=== PATIENT | female | born 1965 | race Caucasian/White ===

== ENCOUNTER 2017-04-29 04:25 | Emergency (ER) | payer OTHER ==
--- NOTE | 2017-04-29 04:31 | EDM.PDOC ---
ED HPI GENERAL MEDICAL PROBLEM - General Chief Complaint: Respiratory Problem Stated Complaint: POSSIBLE HEART ATTACK Time Seen by Provider: 04/29/17 04:30 - History of Present Illness INITIAL COMMENTS - FREE TEXT/NARRATIVE: 51-year-old female presents to the emergency room concerned she may be having a heart attack. Patient presents to the emergency room with a 3 hour history of feeling very anxious tingling in her hands minimal chest discomfort, mild abdominal discomfort. She is very shaky and concerned. Patient took 2 baby aspirin earlier this evening. This evening the patient went to bed and became very anxious to discomfort she was having was more epigastric it did not radiate into her chest did not radiate into her neck or into her arms she did have some hand tingling this was felt by the patient bilaterally. Family history is positive for a brother who had an UT in his 50s he is doing well now 3 other siblings have not had any heart problems she has a grandparent with history of an UT in over age 70 Several weeks ago the patient had a stress Cardiolite done because of becoming shortness of breath after climbing stairs and this did not show any obvious ischemia she had an accelerated hypertensive response and suboptimal exercise tolerance Cardiolite images did not show any obvious reversible ischemia there some questionable areas and an area of potential old infarct. - Related Data Allergies Allergy/AdvReac Type Severity Reaction Status Date / Time No Known Allergies Allergy Verified 10/31/16 16:46 Home Meds: Home Meds Hydrochlorothiazide/Losartan [Hyzaar 50-12.5 MG] 1 tab PO DAILY 10/31/16 [ History] Cetirizine HCl [Zyrtec] 10 mg PO DAILY 04/29/17 [History] LORazepam [Ativan] 0.5 mg PO BID PRN #10 tablet 04/29/17 [Rx] Past Medical History - Past Health History Medical/Surgical History: Denies Medical/Surgical History HEENT History: Reports: Other (See Below) Other HEENT History: hearing loss, R otalgia Cardiovascular History: Reports: Hypertension Gastrointestinal History: Reports: Hemorrhoids Genitourinary History: Reports: Other (See Below) Other Genitourinary History: microscopic hematuria Neurological History: Reports: Migraines, Vertigo Endocrine/Metabolic History: Reports: Obesity/BMI 30+ Dermatologic History: Reports: Other (See Below) Other Dermatologic History: contact dermatitis - Past Surgical History Endocrine Surgical History: Reports: Thyroid Biopsy Social & Family History - Tobacco Use Smoking Status *Q: Never Smoker - Recreational Drug Use Recreational Drug Use: No Drug Use in Last 12 Months: No ED ROS GENERAL - Review of Systems Review Of Systems: See Below Constitutional: Reports: No Symptoms HEENT: Reports: No Symptoms Respiratory: Reports: Other (She has some discomfort with deep breathing). Denies: Shortness of Breath Cardiovascular: Reports: Chest Pain (Minimal chest discomfort) GI/Abdominal: Reports: Abdominal Pain (Epigastric), Nausea. Denies: Black Stool , Bloody Stool, Constipation, Diarrhea, Vomiting : Reports: No Symptoms Neurological: Reports: No Symptoms ED EXAM, GENERAL - Physical Exam Exam: See Below Exam Limited By: Other (Upon arrival to the emergency department the patient was very anxious this did improve with time and a little treatment) General Appearance: Anxious Head: Atraumatic, Normocephalic Neck: Normal Inspection, Supple, Non-Tender, Full Range of Motion. No: Lymphadenopathy (L), Lymphadenopathy (R) Respiratory/Chest: No Respiratory Distress, Lungs Clear, Normal Breath Sounds Cardiovascular: Regular Rate, Rhythm, No Edema, No Murmur GI/Abdominal: Normal Bowel Sounds, Soft, Other (Patient has some epigastric discomfort no other abdominal tenderness appreciated no rigidity no rebound or guarding) Back Exam: Normal Inspection. No: CVA Tenderness (L), CVA Tenderness (R) Neurological: Alert, Oriented Psychiatric: Anxious Course - Vital Signs Last Recorded V/S: Last Vital Signs Temp 36.2 C 04/29/17 04:29 Pulse 75 04/29/17 07:30 Resp 16 04/29/17 07:30 BP 168/78 H 04/29/17 04:29 Pulse Ox 99 04/29/17 07:30 - Orders/Labs/Meds Orders: Active Orders 24 hr Category Date Time Status EKG Documentation Completion [RC] STAT Care 04/29/17 04:43 Active Chest 1V Frontal [CR] Stat Exams 04/29/17 04:43 Taken Labs: Laboratory Tests 04/29/17 04/29/17 04/29/17 Range/Units 04:30 04:30 04:30 WBC 10.36 H (3.98-10.04) K/mm3 RBC 5.14 (3.98-5.22) M/mm3 Hgb 14.1 (11.2-15.7) gm/L Hct 43.3 (34.1-44.9) % MCV 84.2 (79.4-94.8) fl MCH 27.4 (25.6-32.2) pg MCHC 32.6 (32.2-35.5) g/dl RDW Std Deviation 41.6 (36.4-46.3) fL Plt Count 239 (182-369) K/mm3 MPV 10.4 (9.4-12.3) fl Neutrophils % (Manual) 71 H (40-60) % Band Neutrophils % 0 (0-10) % Lymphocytes % (Manual) 22 (20-40) % Atypical Lymphs % 0 % Monocytes % (Manual) 6 (2-10) % Eosinophils % (Manual) 1 (0.7-5.8) % Basophils % (Manual) 0 L (0.1-1.2) Platelet Estimate Adequate Plt Morphology Comment Normal RBC Morph Comment Normal PT 9.7 (8.0-13.0) SECONDS INR 0.90 APTT 27 (22-36) SECONDS Sodium 143 (136-145) mEq/L Potassium 3.3 L (3.5-5.1) mEq/L Chloride 107 (98-107) mEq/L Carbon Dioxide 23 (21-32) mEq/L Anion Gap 16.3 H (5-15) BUN 13 (7-18) mg/dL Creatinine 0.9 (0.55-1.02) mg/dL Est Cr Clr Drug Dosing 63.86 mL/min Estimated GFR (MDRD) > 60 (>60) mL/min BUN/Creatinine Ratio 14.4 (14-18) Glucose 124 H (74-106) mg/dL Calcium 9.2 (8.5-10.1) mg/dL Total Bilirubin 0.3 (0.2-1.0) mg/dL AST 13 L (15-37) U/L ALT 22 (14-59) U/L Alkaline Phosphatase 80 (46-116) U/L Troponin I < 0.017 (0.00-0.056) ng/mL Total Protein 8.1 (6.4-8.2) g/dl Albumin 4.0 (3.4-5.0) g/dl Globulin 4.1 gm/dL Albumin/Globulin Ratio 1.0 (1-2) 04/29/17 Range/Units 06:50 WBC (3.98-10.04) K/mm3 RBC (3.98-5.22) M/mm3 Hgb (11.2-15.7) gm/L Hct (34.1-44.9) % MCV (79.4-94.8) fl MCH (25.6-32.2) pg MCHC (32.2-35.5) g/dl RDW Std Deviation (36.4-46.3) fL Plt Count (182-369) K/mm3 MPV (9.4-12.3) fl Neutrophils % (Manual) (40-60) % Band Neutrophils % (0-10) % Lymphocytes % (Manual) (20-40) % Atypical Lymphs % % Monocytes % (Manual) (2-10) % Eosinophils % (Manual) (0.7-5.8) % Basophils % (Manual) (0.1-1.2) Platelet Estimate Plt Morphology Comment RBC Morph Comment PT (8.0-13.0) SECONDS INR APTT (22-36) SECONDS Sodium (136-145) mEq/L Potassium (3.5-5.1) mEq/L Chloride (98-107) mEq/L Carbon Dioxide (21-32) mEq/L Anion Gap (5-15) BUN (7-18) mg/dL Creatinine (0.55-1.02) mg/dL Est Cr Clr Drug Dosing mL/min Estimated GFR (MDRD) (>60) mL/min BUN/Creatinine Ratio (14-18) Glucose (74-106) mg/dL Calcium (8.5-10.1) mg/dL Total Bilirubin (0.2-1.0) mg/dL AST (15-37) U/L ALT (14-59) U/L Alkaline Phosphatase (46-116) U/L Troponin I < 0.017 (0.00-0.056) ng/mL Total Protein (6.4-8.2) g/dl Albumin (3.4-5.0) g/dl Globulin gm/dL Albumin/Globulin Ratio (1-2) Meds: Medications Discontinued Medications Generic Name Dose Route Start Last Admin Trade Name Freq PRN Reason Stop Dose Admin Lorazepam 0.5 mg 04/29/17 04:44 04/29/17 04:53 Ativan IVPUSH 04/29/17 04:45 0.5 mg ONETIME ONE Administration Ondansetron HCl 4 mg 04/29/17 04:44 04/29/17 04:53 Zofran IVPUSH 04/29/17 04:45 4 mg ONETIME ONE Administration - Re-Assessments/Exams Free Text/Narrative Re-Assessment/Exam: 04/29/17 05:33 Patient improved shortly after receiving the Ativan and Zofran and after about 15 minutes was symptom-free the tingling in her hands was gone her epigastric discomfort had resolved and she was much calmer. Awaiting labs at this point did review her EKG which shows no acute ischemia she has a right bundle branch block which is not new did review her stress test from several weeks ago along with the Cardiolite report the patient has follow-up with cardiology coming however her stress test did not show any obvious abnormalities she's has suboptimal exercise tolerance. Cardiolite images are a little suspicious for a small UT in the past no obvious reversible defects but questionable area that is very small on the septum. 04/29/17 06:04 Reviewed the results of the test with the patient and her her heart score is 31 point for age 2 points for 3 risk factors hypertension obesity and family history of coronary artery disease discussed the 1.7% chance of major acute coronary event within 6 weeks and offered a repeat troponin 2 hours after the first she would like to pursue this at this time the patient is absolutely symptom-free. Departure - Departure Time of Disposition: 08:12 Disposition: Home, Self-Care 01 Clinical Impression: Anxiety, Epigastric discomfort - Discharge Information Prescriptions: LORazepam [Ativan] 0.5 mg PO BID PRN #10 tablet PRN Reason: Anxiety Referrals: PCP,Unknown [Primary Care Provider] - Lianne Brady NP [ED Midlevel Provider] - Forms: ED Department Discharge Additional Instructions: Return to the emergency room with any questions or problems. Follow up with your regular health care provider this next week for recheck. You have a prescription for Ativan, this is for anxiety, you can use 1 twice daily as needed for anxiety, however only use as needed. Follow-up with the health insurance assessor as scheduled. Take a baby aspirin daily. - My Orders Last 24 Hours: My Active Orders 04/29/17 04:43 EKG Documentation Completion [RC] STAT Chest 1V Frontal [CR] Stat - Assessment/Plan Last 24 Hours: My Active Orders 04/29/17 04:43 EKG Documentation Completion [RC] STAT Chest 1V Frontal [CR] Stat
[2017-04-29 04:32] VITALS: BP 168/78
[2017-04-29] MEDS ORDERED: LORazepam 2 MG/ML MDV IVPUSH ONE (04:44)
[2017-04-29] MEDS ORDERED: Ondansetron 4 MG/2 ML SDV IVPUSH ONE (04:44)
--- NOTE | 2017-04-30 14:38 | CR ---
Chest: Portable view of the chest was obtained. Comparison: No previous chest x-ray. Heart size and mediastinum are within normal limits for portable technique. Lungs are clear with no acute infiltrates. Bony structures are grossly intact. Impression: 1. Nothing acute is identified on portable chest x-ray. Diagnostic code #1
== END 2017-04-29 07:30 | disposition home or self-care (01) ==
LOC: JD.ED 04:25
DX: F41.9 Anxiety disorder, unspecified (principal); R10.13 Epigastric pain; I10 Essential (primary) hypertension; E66.9 Obesity, unspecified; Z68.31 Body mass index [BMI] 31.0-31.9, adult; Z79.899 Other long term (current) drug therapy
CPT/HCPCS: 36415; 71010; 80053; 84484; 85025; 85610; 85730; 93005; 96374; 96375; 99285; J2060; J2405; 99284

== ENCOUNTER 2021-05-11 12:27 | Emergency (ER) | payer BC ==
[2021-05-11 12:39] VITALS: BP 164/87; PULSE 74
[2021-05-11] MEDS ORDERED: Ibuprofen 800 MG Tab PO ONE (13:20)
--- NOTE | 2021-05-11 13:31 | EDM.PDOC ---
ED HPI GENERAL MEDICAL PROBLEM - General Chief Complaint: Lower Extremity Injury/Pain Stated Complaint: FALL/ RT FOOT PAIN Time Seen by Provider: 05/11/21 12:45 Source of Information: Reports: Patient History Limitations: Reports: No Limitations - History of Present Illness INITIAL COMMENTS - FREE TEXT/NARRATIVE: 55 yo F with fall today. Missed a step and twisted her R ankle. She has pain diffusely about the ankle now. She is able to bear weight but has significant pain with walking. Denies additional injury. No knee pain. No foot pain. No numbness/weakness. Hasn't taken anything for pain yet. Right Ankle Pain Score (Numeric/FACES): 10 - Related Data Allergies Allergy/AdvReac Type Severity Reaction Status Date / Time No Known Allergies Allergy Verified 05/11/21 12:39 Home Meds: Home Meds Hydrochlorothiazide/Losartan [Hyzaar 50-12.5 MG] 1 tab PO DAILY 10/31/16 [History] Cetirizine HCl [Zyrtec] 10 mg PO DAILY 04/29/17 [History] LORazepam [Ativan] 0.5 mg PO BID PRN #10 tablet 04/29/17 [Rx] Ibuprofen 800 mg PO TID PRN #24 tablet 05/11/21 [Rx] Past Medical History - Past Health History Medical/Surgical History: Denies Medical/Surgical History HEENT History: Reports: Other (See Below) Other HEENT History: hearing loss, R otalgia Cardiovascular History: Reports: Hypertension Gastrointestinal History: Reports: Hemorrhoids Genitourinary History: Reports: Other (See Below) Other Genitourinary History: microscopic hematuria Neurological History: Reports: Migraines, Vertigo Endocrine/Metabolic History: Reports: Obesity/BMI 30+ Dermatologic History: Reports: Other (See Below) Other Dermatologic History: contact dermatitis - Past Surgical History HEENT Surgical History: Reports: Tonsillectomy Endocrine Surgical History: Reports: Thyroid Biopsy Other Endocrine Surgeries/Procedures: thyroid enlargement Social & Family History - Tobacco Use Tobacco Use Status *Q: Former Tobacco User Used Tobacco, but Quit: Yes Month/Year Tobacco Last Used: 1986 Review of Systems - Review of Systems Review Of Systems: See Below Constitutional: Reports: No Symptoms Respiratory: Reports: No Symptoms Cardiovascular: Reports: No Symptoms GI/Abdominal: Reports: No Symptoms Musculoskeletal: Reports: Leg Pain Skin: Reports: No Symptoms Neurological: Reports: No Symptoms ED EXAM, GENERAL - Physical Exam Exam: See Below Exam Limited By: No Limitations General Appearance: Alert, WD/WN, No Apparent Distress Eye Exam: Bilateral Eye: Normal Inspection Ears: Normal External Exam Nose: Normal Inspection Throat/Mouth: Normal Inspection, Normal Oropharynx, Normal Voice Head: Atraumatic, Normocephalic Neck: Normal Inspection, Supple, Non-Tender Respiratory/Chest: No Respiratory Distress Cardiovascular: Normal Peripheral Pulses GI/Abdominal: No Distention Extremities: Other (RLE: no knee or proximal tib/fib TTP. ankle diffusely swollen, +TTP primarily over lateral malleolus, +soft tissue swelling, no deformity. 2+ DP pulse, distal motor/sensation intact) Neurological: Alert, Oriented, Normal Cognition, No Motor/Sensory Deficits Course - Vital Signs Last Recorded V/S: Last Vital Signs Temp 36.6 C 05/11/21 12:37 Pulse 74 05/11/21 12:37 Resp 18 05/11/21 12:37 BP 164/87 H 05/11/21 12:37 Pulse Ox 97 05/11/21 12:37 - Orders/Labs/Meds Orders: Active Orders 24 hr Category Date Time Status DME for Discharge [COMM] Stat Oth 05/11/21 13:30 Ordered Meds: Medications Discontinued Medications Generic Name Dose Route Start Last Admin Trade Name Mari PRN Reason Stop Dose Admin Ibuprofen 800 mg 05/11/21 13:20 05/11/21 13:33 Ibuprofen 800 Mg Tab PO 05/11/21 13:21 800 mg ONETIME ONE Administration - Re-Assessments/Exams Free Text/Narrative Re-Assessment/Exam: 05/11/21 14:30 XR R tib/fib + ankle shows R lateral malleouls fracture and also posterior malleolus fracture. Placed walking boot, patient has crutches, advised non- weight bearing until ortho f/u, provided Dr. Mercedes's clinic number to schedule. Discussed home care and ED return precautions. Departure - Departure Time of Disposition: 14:31 Disposition: Home, Self-Care 01 Clinical Impression: Fracture of distal end of fibula Qualifiers: Encounter type: initial encounter Fracture type: closed Fracture morphology: unspecified fracture morphology Laterality: right Qualified Code(s): S82.831A - Other fracture of upper and lower end of right fibula, initial encounter for closed fracture Fracture of posterior malleolus of right tibia Qualifiers: Encounter type: initial encounter Fracture type: closed Qualified Code(s): S82.391A - Other fracture of lower end of right tibia, initial encounter for closed fracture - Discharge Information Prescriptions: Ibuprofen 800 mg PO TID PRN #24 tablet PRN Reason: Pain Instructions: Tibial and Fibular Fractures Referrals: Lianne Brady, EXTRACTING MACHINE OPERATOR [Primary Care Provider] - Forms: ED Department Discharge Additional Instructions: 1. Wear walking boot and use crutches until you can walk without pain/limping 2. Take acetaminophen (tylenol) according to bottle directions and take ibuprof en as prescribed as needed for pain. 3. Ice ankle on and off today and tomorrow and keep elevated when possible. 4. Follow up with orthopedics in about a week. You may follow up with the orthopedist of your choice. Dr. Mercedes's (orthopedics) clinic can be reached at [phone] 5. Return to the ED as needed for any new concerning symptoms Sepsis Event Note (ED) - Evaluation Sepsis Screening Result: No Definite Risk - Focused Exam Vital Signs: Vital Signs Temp Pulse Resp BP Pulse Ox 05/11/21 12:37 36.6 C 74 18 164/87 H 97 - My Orders Last 24 Hours: My Active Orders 05/11/21 13:30 DME for Discharge [COMM] Stat - Assessment/Plan Last 24 Hours: My Active Orders 05/11/21 13:30 DME for Discharge [COMM] Stat
--- NOTE | 2021-05-11 13:58 | CR ---
Right ankle: 4 views of the right ankle were obtained. Comparison: No prior right ankle study is available. Plantar spur is noted. Fracture is noted within the lateral malleolus with mild displacement. No additional fracture or other bony abnormality is appreciated. Diffuse soft tissue swelling is noted. Impression: 1. Mildly displaced lateral malleolus fracture with diffuse soft tissue swelling. 2. Plantar spur. Diagnostic code #3
--- NOTE | 2021-05-11 14:19 | CR ---
Right tibia and fibula: 2 views showing the right tibia and fibula were obtained. Comparison: Prior right ankle study performed earlier in the same day. Mild joint space narrowing is seen medially within the right knee. Distal fibular fracture is seen through the lateral malleolus. Additional fracture is seen within the posterior malleolus. Impression: 1. Lateral malleolus fracture as well as posterior malleolus fracture being seen on this exam. 2. Medial joint space narrowing within the right knee. 3. No additional abnormality is appreciated. Diagnostic code #3
== END 2021-05-11 14:40 | disposition home or self-care (01) ==
LOC: JD.ED 12:27
DX: S82.391A Other fracture of lower end of right tibia, initial encounter for closed fracture (principal); S82.831A Other fracture of upper and lower end of right fibula, initial encounter for closed fracture; E66.9 Obesity, unspecified; I10 Essential (primary) hypertension; Z87.891 Personal history of nicotine dependence; Z68.39 Body mass index [BMI] 39.0-39.9, adult; X50.1XXA Overexertion from prolonged static or awkward postures, initial encounter
CPT/HCPCS: 73590; 73610; 99283; A9270